=== PATIENT | female | born 1940 | race Caucasian/White ===

== ENCOUNTER 2019-08-20 11:49 | Emergency (ER) | payer MEDICARE, SELFPAY ==
--- NOTE | ~2019-08-20 | XR_ITS ---
EXAMINATION: XR foot LT min 3V DATE: 08/20/2019 12:34 INDICATION: Left foot pain. TECHNIQUE: 4 views of left foot were obtained. COMPARISON: None. FINDINGS: There is mild valgus. No fracture. There is mild osteoarthritis of first metatarsophalangea l joint and some of the interphalangeal joints. There are enthesophytes at the posterior and plantar aspects of calcaneal tuberosity. IMPRESSION: 1. Mild hallux valgus. 2. Mild polyarticular osteoarthritis. Reviewed, dictated and finalized at location A. ERVATION AGENT
[2019-08-20 11:58] VITALS: BP 165/56; PULSE 84; RESP 20; TEMP 36.7; O2SAT 100
--- NOTE | 2019-08-20 12:04 | ED.GENADULT ---
HPI - General Adult General Chief complaint: Abdominal Pain Stated complaint: foot and stomach pain Time Seen by Provider: 08/20/19 12:05 Source: patient and RN notes reviewed Mode of arrival: ambulatory Limitations: no limitations History of Present Illness HPI narrative: 79 [facility] complaints of lower pelvic pressure and urinary frequency, upper epigastric discomfort described as acid reflux and left foot pain. Patient states that her left foot dorsal aspect has been painful for the past 2-3 weeks denies any injury, no swelling or discoloration noted with strong pedal and posterior tibial pulses. Patient states that when she first gets out of bed and puts weight on foot it is painful and decreases as she is up on her foot, has taken some Tylenol for her discomfort. She states lower medial abdomen discomfort, urinary frequency, and urinary odor for the past few days with history of UTI's. rates her discomfort as 5/10. Patient also states upper epigastric discomfort for past month with increase in belching, denies any nausea or vomiting, had normal BM today has been taking Tums for this complaint. MD complaint: left foot pain, lower pelvic pressure, urgency, frequency, acid reflex Onset (ago): week(s) (3 left foot,4 weeks of upper epigastric discomfort and belching, 2-3 days of urinary symptoms) Location: abdomen (epigastric) and lower extremity (left foot) Radiation: non-radiation Severity: moderate Severity scale (1-10): 5 Quality: aching Pain Consistency: intermittent Relieving factors: medication Exacerbating factors: movement Associated symptoms: denies other symptoms Treatments prior to arrival: other (Tylenol and TUMS) Related Data Home Medications Medication Instructions Recorded Confirmed amlodipine 10 mg PO DAILY 07/12/19 08/20/19 aspirin 81 mg PO DAILY 07/12/19 08/20/19 atorvastatin 40 mg PO DAILY 07/12/19 08/20/19 clopidogrel [Plavix] 75 mg PO DAILY 07/12/19 08/20/19 hydrochlorothiazide 25 mg PO DAILY 07/12/19 08/20/19 latanoprost 1 drp OPHTHALMIC (EYE) DAILY 07/12/19 08/20/19 levothyroxine 50 mcg PO DAILY 07/12/19 08/20/19 metformin 850 mg PO BID 07/12/19 08/20/19 omega [id number] oil [Fish Oil] 1 cap PO DAILY 07/12/19 08/20/19 Allergies Allergy/AdvReac Type Severity Reaction Status Date / Time No Known Allergies Allergy Verified 08/20/19 12:11 Review of Systems Review of Systems: Narrative: CONSTITUTIONAL: Denies fever, chills, or sweats. EYES: Denies visual changes, redness, or discharge. ENT: Denies rhinorrhea, congestion, sore throat, or otalgia. CARDIOVASCULAR: Denies chest pain, palpitations, or edema. RESPIRATORY: Denies cough or dyspnea. GASTROINTESTINAL:reports abdominal pain lower medial region and medial upper, no nausea, vomiting, or diarrhea. GENITOURINARY: voices dysuria or hematuria, reports urinary frequency and urgency SKIN: Denies rash or itching. MUSCULOSKELETAL: Denies back pain,positive for dorsal left foot pain with weight bearing,. NEUROLOGIC: Denies headache, numbness, or weakness. PSYCHIATRIC: Denies anxiety or depression. All systems reviewed & are unremarkable except as noted in HPI and below PMFSH Past Medical History Medical History (Updated 08/24/19 @ 08:32 by Bere Montgomery NP) Cataract Diabetes Hypercholesteremia Hypertension Hypothyroidism Postmenopausal Surgical History Surgical History (Updated 08/24/19 @ 08:29 by Bere Montgomery NP) H/O carotid endarterectomy History of appendectomy Tympanic tube insertion Social History Social History (Updated 08/20/19 @ 12:41 by Bere Montgomery NP) Smoking status: Never smoker Living arrangements: alone Occupation/Education: retired Gender identity (if verbalized by the patient): Female Comments At time of signature, agree with nursing past medical, social history. There is no relevant family history pertinent to the presenting complaint Exam Narrative:
== END 2019-08-20 12:55 | disposition home or self-care (01) ==
PROVIDERS: Emergency Provider Registered Nurse; PCP Internal Medicine Infectious Disease
DX: N39.0 Urinary tract infection, site not specified (principal); K21.9 Gastro-esophageal reflux disease without esophagitis; M79.672 Pain in left foot; H26.9 Unspecified cataract; E11.9 Type 2 diabetes mellitus without complications; E78.00 Pure hypercholesterolemia, unspecified; I10 Essential (primary) hypertension; E03.9 Hypothyroidism, unspecified
CPT/HCPCS: 73630; 81003; 87077; 87086; 87088; 87186; 99213; G0463

== ENCOUNTER 2020-02-28 17:55 | Emergency (ER) | payer MEDICARE, SELFPAY ==
[2020-02-28 18:08] VITALS: BP 198/68; PULSE 70; RESP 18; TEMP 36.6; O2SAT 100
--- NOTE | 2020-02-28 18:45 | ED.GENADULT ---
HPI - General Adult General Chief complaint: Unspecified Stated complaint: blood up Time Seen by Provider: 02/28/20 18:45 Source: patient and RN notes reviewed Mode of arrival: ambulatory Limitations: no limitations History of Present Illness HPI narrative: 79-year-old female presents with complaints of elevated blood pressure since adjustment of medications 2 days ago. Shelly says her PMD office took her off her water pill and adjusted her Quinapril. Denies fatigue, numbness or tingling in the extremities, dizziness, headache, blurred vision, or other vision disturbance. Symptoms has increased over the last 24 hours with increase blood pressure readings. Denies URI symptoms. Denies dysuria or hematuria. Elevated blood glucose readings today. Denies polyuria, polydipsia, nocturia, recent weight loss, rapid heart beat, dizziness, lightheadedness, and alter mental status. Denies fever or chills. Denies nausea, vomiting, and abdominal pain. Denies chest pain or shortness of breath. The patient reports she have not been diagnosed with COVID-19. The patient reports she is not waiting for the results of a COVID-19 lab test. The patient reports she do not have fever, chills, weakness, or fatigue. The patient reports she do not have a new or worsening cough or shortness of breath. The patient reports she do not have any rhinorrhea, congestion, sore throat, loss of taste, or diarrhea. Tolerating po intake well. Denies recent traveling. Denies concerns for COVID-19 or exposures been home with limited outdoor exposure except for essential household needs and return home. At this time, patient is not suspected of having COVID-19. Some parts of this dictation were generated by voice recognition software and may contain typographical and/or grammatical inaccuracies. Related Data Home Medications Medication Instructions Recorded Confirmed amlodipine 5 mg PO DAILY 07/12/19 02/28/20 atorvastatin 40 mg PO DAILY 07/12/19 02/28/20 clopidogrel [Plavix] 75 mg PO DAILY 07/12/19 02/28/20 latanoprost 1 drp OPHTHALMIC (EYE) DAILY 07/12/19 02/28/20 levothyroxine 50 mcg PO DAILY 07/12/19 02/28/20 metformin 850 mg PO BID 07/12/19 02/28/20 meclizine 25 mg PO TID PRN 02/28/20 02/28/20 omeprazole 20 mg PO DAILY 02/28/20 02/28/20 quinapril 40 mg PO DAILY 02/28/20 02/28/20 vitamin E 100 unit PO DAILY 02/28/20 02/28/20 Allergies Allergy/AdvReac Type Severity Reaction Status Date / Time Unable to Assess Allergy Verified 02/28/20 18:35 Review of Systems Review of Systems: Narrative: CONSTITUTIONAL: Denies fever, chills, sweats. EYES: Denies visual changes, redness, discharge. ENT: Denies rhinorrhea, congestion, sore throat, otalgia. CARDIOVASCULAR: Denies chest pain, palpitations, edema. Complains of elevated blood pressure and glucose readings. RESPIRATORY: Denies dyspnea, wheezing, cough. GASTROINTESTINAL: Denies abdominal pain, nausea, vomiting, diarrhea. GENITOURINARY: Denies dysuria, hematuria, abnormal discharge. SKIN: Denies rash or itching. MUSCULOSKELETAL: Denies acute back pain, joint pain, or myalgia. NEUROLOGIC: Denies numbness or focal weakness. PSYCHIATRIC: Denies anxiety or depression. All other systems reviewed are negative, except as documented in HPI and below. [facility] Past Medical History Medical History Cataract Diabetes Hypercholesteremia Hypertension Hypothyroidism Postmenopausal Surgical History Surgical History H/O carotid endarterectomy History of appendectomy Tympanic tube insertion Family History Family History (Updated 03/02/20 @ 16:59 by BONG Mckeon) Father Family history of hypertension Social History Social History (Updated 03/02/20 @ 17:00 by BONG Mckeon) Smoking status: Never smoker Tobacco type: cigarettes Substance use: never Occupation/Educatio
[2020-02-28 19:02] VITALS: BP 178/70
== END 2020-02-28 19:17 | disposition home or self-care (01) ==
PROVIDERS: Emergency Provider Nurse Practitioner Family
DX: I10 Essential (primary) hypertension (principal); E11.9 Type 2 diabetes mellitus without complications; E78.00 Pure hypercholesterolemia, unspecified; E03.9 Hypothyroidism, unspecified; H26.9 Unspecified cataract
CPT/HCPCS: 99211; G0463

== ENCOUNTER 2020-07-22 12:43 | Emergency (ER) | payer MEDICARE, SELFPAY ==
[2020-07-22 12:43] VITALS: BP 218/85; PULSE 88; RESP 18; TEMP 37.1; O2SAT 98
[2020-07-22 12:45] VITALS: PULSE 84
[2020-07-22 12:49] VITALS: BP 205/76; PULSE 86
--- NOTE | 2020-07-22 12:49 | ED.GENADULT ---
HPI - General Adult General Chief complaint: Neuro Symptoms/Deficit Stated complaint: chest pain Time Seen by Provider: 07/22/20 12:50 Source: patient, family and RN notes reviewed Mode of arrival: ambulatory Limitations: no limitations History of Present Illness HPI narrative: 80 year old female who presents to [facility] care accompanied by son with complaints of feeling dizzy this morning and when she coughed she had a pain in the left side of her chest. Patient states that she recently saw her PCP and was diagnosed with a urinary tract infection and she has taken 2 doses of Macrobid. Patient has history of hypertension and takes medications daily but blood pressure noted to be 205/76 the lowest reading while here. Finger stick blood sugar 132 in clinic, stated sugar was 173 this morning when she checked blood sugar. Patient able to move all extremities on own power, no drift noted, face is symmetrical, states dizziness not increased when standing. Patient denies any headache, visual changes, or shortness of breath. lungs clear to auscultation, no tachypnea or accessory muscle use. MD complaint: dizziness Onset (ago): hour(s) (1) Location: head Radiation: non-radiation Relieving factors: none Exacerbating factors: none Associated symptoms: chest pain (one episode with cough this morning was sharp now gone.) Treatments prior to arrival: none Related Data Home Medications Medication Instructions Recorded Confirmed amlodipine 5 mg PO DAILY 07/12/19 02/28/20 atorvastatin 40 mg PO DAILY 07/12/19 02/28/20 clopidogrel [Plavix] 75 mg PO DAILY 07/12/19 02/28/20 latanoprost 1 drp OPHTHALMIC (EYE) DAILY 07/12/19 02/28/20 levothyroxine 50 mcg PO DAILY 07/12/19 02/28/20 metformin 850 mg PO BID 07/12/19 02/28/20 meclizine 25 mg PO TID PRN 02/28/20 02/28/20 quinapril 40 mg PO DAILY 02/28/20 02/28/20 vitamin E 100 unit PO DAILY 02/28/20 02/28/20 nitrofurantoin 100 mg PO Q12H 07/22/20 07/22/20 Allergies Allergy/AdvReac Type Severity Reaction Status Date / Time No Known Allergies Allergy Verified 07/22/20 13:11 Review of Systems Review of Systems: Narrative: CONSTITUTIONAL: Denies fever, chills, or sweats. EYES: Denies visual changes, redness, or discharge. ENT: Denies rhinorrhea, congestion, sore throat, or otalgia. CARDIOVASCULAR: reports that she had left sided chest pain when she coughed today,no palpitations, or edema noted and this scared her this morning, no pain at present RESPIRATORY: Denies acute cough or feelings of dyspnea. GASTROINTESTINAL: Denies abdominal pain, nausea, vomiting, or diarrhea. GENITOURINARY: Positive dysuria or hematuria. SKIN: Denies rash or itching. MUSCULOSKELETAL: Denies back pain, joint pain, or myalgia. NEUROLOGIC: Denies headache, numbness, or weakness. PSYCHIATRIC: Denies anxiety or depression. All systems reviewed & are unremarkable except as noted in HPI and below PMFSH Past Medical History Medical History (Updated 07/22/20 @ 13:26 by Bere Montgomery NP) Cataract Diabetes Hypercholesteremia Hypertension Hypothyroidism Postmenopausal Surgical History Surgical History H/O carotid endarterectomy History of appendectomy Tympanic tube insertion Family History Family History (Updated 03/02/20 @ 16:59 by BONG Mckeon) Father Family history of hypertension Social History Social History (Updated 03/02/20 @ 17:00 by BONG Mckeon) Smoking status: Never smoker Tobacco type: cigarettes Substance use: never Gender identity (if verbalized by the patient): Female Comments At time of signature, agree with nursing past medical, surgical, social and family history. There is no relevant family history pertinent to the presenting complaint Exam Narrative: Exam Narrative: GENERAL: Well-appearing, well-nourished, and in no acute distress. HEAD: Normocephalic, atraumatic. EYES: PERRLA and EOMI.no nystagmus E
[2020-07-22 12:51] VITALS: BP 213/61; PULSE 83
[2020-07-22 12:54] VITALS: BP 210/73; PULSE 97
[2020-07-22 12:55] LABS: Glucose Point of Care 132 (65-105)
--- NOTE | 2020-07-22 13:06 | ECG_ITS ---
Measurements Intervals [place] Rate: 78 P: 51 NM: 162 QRS: -14 QRSD: 82 T: 68 QT: 363 QTc: 413 Interpretive Statements SINUS RHYTHM BASELINE ARTIFACT- I, II, AVR, AVL, AVF, V1-V6 BORDERLINE ECG Electronically Signed On 07-22-2020 15:35:14 CONSTRUCTION SUPERVISOR by Keshawn Morse D.O.
== END 2020-07-22 13:15 | disposition short-term general hospital (02) ==
PROVIDERS: Emergency Provider Registered Nurse; PCP Internal Medicine Infectious Disease
DX: I10 Essential (primary) hypertension (principal); R42 Dizziness and giddiness; E11.9 Type 2 diabetes mellitus without complications; E78.00 Pure hypercholesterolemia, unspecified; E03.9 Hypothyroidism, unspecified; Z79.01 Long term (current) use of anticoagulants
CPT/HCPCS: 82948; 93005; 99213; G0463

== ENCOUNTER 2020-12-13 09:34 | Emergency (ER) | payer MEDICARE, SELFPAY ==
--- NOTE | 2020-12-13 09:40 | ED.UPPEXIN ---
HPI - Extremity Injury (Upper) General Chief Complaint: Skin/Abscess/Foreign Body Stated Complaint: Insect (Bee) Bite on right Hand Time Seen by Provider: 12/13/20 09:45 Source: patient and RN notes reviewed Mode of arrival: ambulatory Limitations: no limitations History of Present Illness HPI narrative: 80 yo female presents to the [facility] with C/O being stung by a bee yesterday. Sting at the base of 3rd finger right hand. Warmth, redness and swelling noted to the dorsal aspect for hand, not circumferential Denies SOB, tongue or lip swelling. Sensation intact all 5 fingers. Strong skating rink ice maker noted. Positive radial pulse. States that she took metform this am and ate [id number] today. Related Data Home Medications Medication Instructions Recorded Confirmed amlodipine 5 mg PO DAILY 07/12/19 12/13/20 atorvastatin 40 mg PO DAILY 07/12/19 12/13/20 clopidogrel [Plavix] 75 mg PO DAILY 07/12/19 12/13/20 latanoprost 1 drp OPHTHALMIC (EYE) DAILY 07/12/19 12/13/20 levothyroxine 50 mcg PO DAILY 07/12/19 12/13/20 metformin 850 mg PO BID 07/12/19 12/13/20 meclizine 25 mg PO TID PRN 02/28/20 12/13/20 quinapril 40 mg PO DAILY 02/28/20 12/13/20 vitamin E 100 unit PO DAILY 02/28/20 12/13/20 metoprolol succinate 100 mg PO DAILY 12/13/20 12/13/20 Allergies Allergy/AdvReac Type Severity Reaction Status Date / Time No Known Allergies Allergy Verified 12/13/20 09:57 Review of Systems Review of Systems: All systems reviewed & are unremarkable except as noted in HPI and below Constitutional: Constitutional: Reports no additional constitutional complaints, Denies chills, Denies fever(s) and Denies weakness Eyes: Eyes: Reports no additional eye complaints ENT: Reports system reviewed and no additional complaints, except as documented, Denies dizziness and Denies sore throat Cardiovascular: Cardiovascular: Reports no additional cardiovascular complaints, Denies chest pain and Denies radiating jaw, neck or arm pain Respiratory: Respiratory: Reports no additional respiratory complaints, Denies cough, Denies dyspnea and Denies wheezing Gastrointestinal: Gastrointestinal: Reports no additional gastrointestinal complaints, Denies abdominal pain, Denies nausea and Denies vomiting Integumentary/Breasts: Skin/Breast: Reports as per HPI Neurologic: Reports system reviewed and no additional complaints, except as documented, Denies confusion, Denies focal weakness, Denies numbness and Denies weakness Psychiatric: Psychiatric: Reports no additional psychiatric complaints [facility] Past Medical History Medical History (Updated 12/13/20 @ 09:56 by Olivia Givens) Cataract Diabetes Hypercholesteremia Hypertension Hypothyroidism Postmenopausal Surgical History Surgical History H/O carotid endarterectomy History of appendectomy Tympanic tube insertion Family History Family History Father Family history of hypertension Social History Social History Smoking status: Never smoker Tobacco type: cigarettes Substance use: never Gender identity (if verbalized by the patient): Female Comments At the time of my signature, I reviewed and agree with the nursing past medical, surgical, social, and family history. There is no relevant family history pertinent to the patient complaint. Exam Const: General: healthy appearing, no acute distress and alert Nutritional Appearance: well nourished Orientation/consciousness: patient oriented x3 Limitations: no limitations HENMT: Head: normal to inspection Eyes: Conjunctivae: conjunctivae normal Pupils: Equal, round and reactive pupils present Neck: Neck: normal visual inspection, no lymphadenopathy and no meningeal signs Chest: Chest palpation & inspection: normal inspection of the chest Resp: Effort & Inspection: normal respiratory effort and no u
[2020-12-13 09:42] VITALS: BP 171/61; PULSE 68; RESP 20; TEMP 36.6; O2SAT 100
[2020-12-13 09:58] LABS: Glucose Point of Care 313 mg/dl (65-105)
[2020-12-13 10:05] VITALS: BP 170/58
== END 2020-12-13 10:05 | disposition home or self-care (01) ==
PROVIDERS: Emergency Provider Nurse Practitioner; PCP Internal Medicine Infectious Disease
DX: T63.441A Toxic effect of venom of bees, accidental (unintentional), initial encounter (principal); E11.9 Type 2 diabetes mellitus without complications; E78.00 Pure hypercholesterolemia, unspecified; I10 Essential (primary) hypertension; E03.9 Hypothyroidism, unspecified; H26.9 Unspecified cataract
CPT/HCPCS: 82948; 99213; G0463

== ENCOUNTER 2021-01-26 11:54 | Emergency (ER) | payer MEDICARE, SELFPAY ==
--- NOTE | 2021-01-26 11:57 | ED.FEMALEGU ---
HPI - Female Genitourinary General Chief complaint: Urogenital-Female Stated complaint: poss uti Time Seen by Provider: 01/26/21 11:57 Source: patient and RN notes reviewed History of Present Illness HPI Narrative: Patient is an 80-year-old female who presents the urgent care with complaints of 1 month history of on and off abdominal pains, possible UTI due to chills and sweats at night for the last 3 to 4 days, and a rash that comes and goes to the bilateral lower legs . Patient states that the rash goes away sometimes after elevating her legs. Patient has not spoke to her PCP regarding the rash. States that she saw her primary care doctor, and obtain lab work, around 05 January and did not mention to them her abdominal pain that comes and goes. Patient currently denies of abdominal pain, nausea, vomiting, low back pain. Denies of any urinary symptoms such as dysuria, frequency or urgency. Patient has not taken anything for her symptoms. Denies of any fevers. No other acute complaints. No acute distress noted. Patient aware of the plan of care. Some parts of this dictation were generated by voice recognition software and may contain typographical and/or grammatical inaccuracies. Related Data Home Medications Medication Instructions Recorded Confirmed amlodipine 5 mg PO DAILY 07/12/19 12/13/20 atorvastatin 40 mg PO DAILY 07/12/19 12/13/20 clopidogrel [Plavix] 75 mg PO DAILY 07/12/19 12/13/20 latanoprost 1 drp OPHTHALMIC (EYE) DAILY 07/12/19 12/13/20 levothyroxine 50 mcg PO DAILY 07/12/19 12/13/20 metformin 850 mg PO BID 07/12/19 12/13/20 meclizine 25 mg PO TID PRN 02/28/20 12/13/20 quinapril 40 mg PO DAILY 02/28/20 12/13/20 vitamin E 100 unit PO DAILY 02/28/20 12/13/20 metoprolol succinate 100 mg PO DAILY 12/13/20 12/13/20 Allergies Allergy/AdvReac Type Severity Reaction Status Date / Time No Known Allergies Allergy Verified 01/26/21 11:56 Review of Systems Review of Systems: Narrative: CONSTITUTIONAL: Reports of chills and sweats at night EYES: Denies visual changes, redness, or discharge. ENT: Denies rhinorrhea, congestion, sore throat, or otalgia. CARDIOVASCULAR: Denies chest pain, palpitations, or edema. RESPIRATORY: Denies cough or dyspnea. GASTROINTESTINAL: Reports of intermittent lower abdominal pains without nausea, vomiting or diarrhea GENITOURINARY: Denies dysuria or hematuria. SKIN: Reports of a rash to the lower extremities that comes and goes MUSCULOSKELETAL: Denies back pain, joint pain, or myalgia. NEUROLOGIC: Denies headache, numbness, or weakness. All other systems reviewed are negative, except as documented in HPI. [facility] Past Medical History Medical History (Updated 01/26/21 @ 12:34 by BONG Fountain) Cataract Diabetes Hypercholesteremia Hypertension Hypothyroidism Postmenopausal Surgical History Surgical History H/O carotid endarterectomy History of appendectomy Tympanic tube insertion Family History Family History Father Family history of hypertension Social History Social History Smoking status: Never smoker Tobacco type: cigarettes Substance use: never Gender identity (if verbalized by the patient): Female Comments At the time of my signature, I reviewed and agree with the nursing past medical, surgical, social, and family history. There is no relevant family history pertinent to the patient complaint. Exam Narrative: Exam Narrative: GENERAL: This is a well-nourished, well-developed patient, in no apparent distress. HEAD: normocephalic, atraumatic. EYES: PERRL. Sclera clear/white. Vision is grossly intact. EARS: External ears normal NOSE: External nose normal with no obvious nasal discharge, nares without redness, no rhinorrhea. THROAT: Mucous membranes moist NECK: Neck supple CARDIOVASCULAR: Regular rate and rh
[2021-01-26 12:00] VITALS: BP 191/60; PULSE 66; RESP 20; TEMP 36.7; O2SAT 99
== END 2021-01-26 12:37 | disposition home or self-care (01) ==
PROVIDERS: Emergency Provider Nurse Practitioner Family; PCP Internal Medicine Infectious Disease
DX: R68.83 Chills (without fever) (principal); H26.9 Unspecified cataract; E11.9 Type 2 diabetes mellitus without complications; E78.00 Pure hypercholesterolemia, unspecified; I10 Essential (primary) hypertension; E03.9 Hypothyroidism, unspecified
CPT/HCPCS: 81003; 87077; 87086; 87186; 99213; G0463

== ENCOUNTER 2021-09-19 11:40 | Emergency (ER) | payer MEDICARE, SELFPAY ==
--- NOTE | ~2021-09-19 | XR_ITS ---
EXAMINATION: XR hip RT min 2V DATE: 09/19/2021 12:37 INDICATION: Right hip pain. TECHNIQUE: 2 views of right hip were obtained. COMPARISON: None. FINDINGS: Bone alignment is normal. No fracture. There is sclerosis in femoral head, consistent with osteonecrosis. Right hip joint space is normal. IMPRESSION: 1. Sclerosis in right femoral head, consistent with osteonecrosis. Reviewed, dictated and finalized at location A.
[2021-09-19 11:59] VITALS: BP 220/78; PULSE 69; RESP 16; TEMP 36.4; O2SAT 98
--- NOTE | 2021-09-19 12:08 | ED.LOWEXIN ---
HPI - Extremity Injury (Lower) General Chief Complaint: Extremity Injury, Lower Stated Complaint: right leg pain Time Seen by Provider: 09/19/21 12:08 Source: patient and RN notes reviewed History of Present Illness HPI Narrative: Patient is an 81-year-old female who presents the urgent care with complaints of right leg and right hip pain. Patient states she woke up with the pain today which seems to be mildly getting better. Patient states she also has some numbness and tingling down the right leg however that might be a little normal for her due to her history of neuropathy . Patient denies of any recent fall or injury. Patient has not taken anything [id number] for her pain. No other acute complaints. No acute distress noted. Patient read the plan of care. Some parts of this dictation were generated by voice recognition software and may contain typographical and/or grammatical inaccuracies. Related Data Home Medications Medication Instructions Recorded Confirmed atorvastatin 40 mg PO DAILY 07/12/19 09/19/21 clopidogrel [Plavix] 75 mg PO DAILY 07/12/19 09/19/21 latanoprost 1 drp OPHTHALMIC (EYE) DAILY 07/12/19 09/19/21 levothyroxine 50 mcg PO DAILY 07/12/19 09/19/21 metformin 850 mg PO BID 07/12/19 09/19/21 meclizine 25 mg PO TID PRN 02/28/20 09/19/21 quinapril 40 mg PO DAILY 02/28/20 09/19/21 vitamin E 100 unit PO DAILY 02/28/20 09/19/21 metoprolol succinate 100 mg PO DAILY 12/13/20 09/19/21 hydralazine 25 mg PO TID 09/19/21 09/19/21 Allergies Allergy/AdvReac Type Severity Reaction Status Date / Time Penicillins Allergy Cramping Verified 09/19/21 12:20 of the Muscles Review of Systems Review of Systems: CONSTITUTIONAL: Denies fever, chills, or sweats. EYES: Denies visual changes, redness, or discharge. ENT: Denies rhinorrhea, congestion, sore throat, or otalgia. CARDIOVASCULAR: Denies chest pain, palpitations, or edema. RESPIRATORY: Denies cough or dyspnea. GASTROINTESTINAL: Denies abdominal pain, nausea, vomiting, or diarrhea. GENITOURINARY: Denies dysuria or hematuria. SKIN: Denies rash or itching. MUSCULOSKELETAL: Reports of right posterior hip pain rating down the right leg NEUROLOGIC: Denies headache, numbness, or weakness. All other systems reviewed are negative, except as documented in HPI. [facility] Past Medical History Medical History (Updated 09/19/21 @ 13:02 by BONG Fountain) Cataract Diabetes Hypercholesteremia Hypertension Hypothyroidism Postmenopausal Surgical History Surgical History H/O carotid endarterectomy History of appendectomy Tympanic tube insertion Family History Family History Father Family history of hypertension Social History Social History Smoking status: Never smoker Tobacco type: cigarettes Substance use: never Gender identity (if verbalized by the patient): Female Comments At the time of my signature, I reviewed and agree with the nursing past medical, surgical, social, and family history. There is no relevant family history pertinent to the patient complaint. Exam Narrative: GENERAL: This is a well-nourished, well-developed patient, in no apparent distress. HEAD: normocephalic, atraumatic. EYES: PERRL. Sclera clear/white. Vision is grossly intact. EARS: External ears normal NOSE: External nose normal with no obvious nasal discharge, nares without redness, no rhinorrhea. THROAT: Mucous membranes moist NECK: Neck supple RESPIRATORY: Clear to auscultation. Breath sounds equal bilaterally. No wheezes, rales, or rhonchi. SKIN: warm, intact with no suspicious lesions or rash, good texture and turgor. NEURO: awake, alert, and oriented to person, place and time. There were no obvious focal neurologic abnormalities. 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 EXTREMITIES: Mild
[2021-09-19 12:56] VITALS: BP 219/79
== END 2021-09-19 13:04 | disposition left against medical advice (07) ==
PROVIDERS: Emergency Provider Nurse Practitioner Family; PCP Internal Medicine Infectious Disease
DX: M87.9 Osteonecrosis, unspecified (principal); M16.11 Unilateral primary osteoarthritis, right hip; I10 Essential (primary) hypertension; E11.9 Type 2 diabetes mellitus without complications; E78.00 Pure hypercholesterolemia, unspecified; E03.9 Hypothyroidism, unspecified; H26.9 Unspecified cataract; G62.9 Polyneuropathy, unspecified
CPT/HCPCS: 73502; 99213; G0463

== ENCOUNTER 2022-01-23 15:43 | Emergency (ER) | payer MEDICARE, SELFPAY ==
[2022-01-23 16:09] VITALS: PULSE 77; RESP 16; TEMP 36.6; O2SAT 98
--- NOTE | 2022-01-23 17:21 | ED.GENADULT ---
HPI - General Adult General Chief complaint: Urogenital-Female Stated complaint: Chills, dizzy Source: patient Mode of arrival: ambulatory Limitations: no limitations History of Present Illness HPI narrative: Patient presents for evaluation of a suspected bladder infection. She indicates that she was experiencing some suprapubic discomfort so she called her primary care provider. He advised that she have a urine specimen performed. It is unclear whether she did have this performed. She states she has had some chills and a headache. She recently had tympanostomy tubes placed as her ears were not draining properly . She has some mild dysuria but reports urinary frequency. She denies any flank pain, vomiting or fever. She has some GI discomfort following a cholecystectomy. She has no other concerns. Related Data Home Medications Medication Instructions Recorded Confirmed atorvastatin 40 mg tablet 40 mg PO DAILY 07/12/19 01/23/22 clopidogrel 75 mg tablet (Plavix) 75 mg PO DAILY 07/12/19 01/23/22 latanoprost 0.005 % eye drops 1 drp ophthalmic (eye) DAILY 07/12/19 01/23/22 levothyroxine 50 mcg tablet 50 mcg PO DAILY 07/12/19 01/23/22 metformin 850 mg tablet 850 mg PO BID 07/12/19 01/23/22 meclizine 25 mg tablet 25 mg PO TID PRN Dizziness 02/28/20 01/23/22 quinapril 40 mg tablet 40 mg PO DAILY 02/28/20 01/23/22 vitamin E 100 unit capsule 100 unit PO DAILY 02/28/20 01/23/22 metoprolol succinate 100 mg 100 mg PO DAILY 12/13/20 01/23/22 tablet,extended release 24 hr hydralazine 25 mg tablet 25 mg PO TID 09/19/21 01/23/22 Allergies Allergy/AdvReac Type Severity Reaction Status Date / Time Penicillins Allergy Cramping Verified 09/19/21 12:20 of the [facility] Review of Systems Review of Systems: CONSTITUTIONAL: Denies fever, chills, or sweats. EYES: Denies visual changes, redness, or discharge. ENT: Denies rhinorrhea, congestion, sore throat, or otalgia. CARDIOVASCULAR: Denies chest pain, palpitations, or edema. RESPIRATORY: Denies cough or dyspnea. GASTROINTESTINAL: Reports some suprapubic discomfort and some GI discomfort following cholecystectomy GENITOURINARY: Reports urinary frequency and mild dysuria SKIN: Denies rash or itching. MUSCULOSKELETAL: Denies back pain, joint pain, or myalgia. NEUROLOGIC: Denies headache, numbness, dizziness, or weakness. PSYCHIATRIC: Denies anxiety or depression. [facility] Past Medical History Medical History (Updated 01/23/22 @ 17:25 by Moises Bales, [employer], ) Cataract Diabetes Hypercholesteremia Hypertension Hypothyroidism Postmenopausal Surgical History Surgical History H/O carotid endarterectomy History of appendectomy History of cholecystectomy Tympanic tube insertion Family History Family History Father Family history of hypertension Social History Social History Smoking status: Never smoker Tobacco type: cigarettes Substance use: never Living arrangements: alone Gender identity (if verbalized by the patient): Female Exam Narrative: GENERAL: Well-appearing, well-nourished, and in no acute distress. HEAD: Normocephalic, atraumatic. EYES: PERRLA and EOMI. ENT: Nares clear, no rhinorrhea or epistaxis. Mucous membranes moist. Oropharynx without tonsillar hypertrophy exudate or other lesions. Bilateral TMs pearly lucas nonbulging NECK: Supple. No adenopathy or masses. No carotid bruits or JVD CHEST: Clear to auscultation. No respiratory distress. No wheezes rales or rhonchi HEART: Regular rate and rhythm. No murmur heard. Normal peripheral pulses. ABDOMEN: Soft, suprapubic tenderness without rebound or guarding. Nondistended, normal active bowel sounds. EXTREMITIES: Normal range of motion. No edema. SKIN: Warm, dry, no rash. NEURO: No focal deficits. Alert and o
== END 2022-01-23 17:27 | disposition home or self-care (01) ==
PROVIDERS: Emergency Provider Nurse Practitioner; PCP Internal Medicine Infectious Disease
DX: N39.0 Urinary tract infection, site not specified (principal); E11.9 Type 2 diabetes mellitus without complications; E78.00 Pure hypercholesterolemia, unspecified; I10 Essential (primary) hypertension; E03.9 Hypothyroidism, unspecified; H26.9 Unspecified cataract; Z79.84 Long term (current) use of oral hypoglycemic drugs
CPT/HCPCS: 81003; 87077; 87086; 87186; 99213; G0463

== ENCOUNTER 2022-01-25 14:57 | Emergency (ER) | payer MEDICARE, SELFPAY ==
[2022-01-25 15:10] VITALS: BP 179/52; PULSE 68; RESP 20; TEMP 37.2; O2SAT 100
--- NOTE | 2022-01-25 15:24 | ED.URI ---
HPI - URI/Sore Throat General Chief Complaint: Upper Respiratory Infection Stated Complaint: covid test/pre dr office Time Seen by Provider: 01/25/22 15:24 Source: patient and RN notes reviewed Mode of arrival: ambulatory Limitations: no limitations History of Present Illness HPI Narrative: 81-year-old female presented for complaint of sore throat, cough and postnasal drainage, onset today. She endorses COVID contact about 5 days ago. She contacted her PCP who told her to have a COVID test. She denies chest pain, shortness of breath, nausea, vomiting, diarrhea, fevers or chills. She has not taken anything for her symptoms. MD elicited complaint: cough Related Data Home Medications Medication Instructions Recorded Confirmed atorvastatin 40 mg tablet 40 mg PO DAILY 07/12/19 01/25/22 clopidogrel 75 mg tablet (Plavix) 75 mg PO DAILY 07/12/19 01/25/22 latanoprost 0.005 % eye drops 1 drp ophthalmic (eye) DAILY 07/12/19 01/25/22 levothyroxine 50 mcg tablet 50 mcg PO DAILY 07/12/19 01/25/22 metformin 850 mg tablet 850 mg PO BID 07/12/19 01/25/22 quinapril 40 mg tablet 40 mg PO DAILY 02/28/20 01/25/22 metoprolol succinate 100 mg 100 mg PO DAILY 12/13/20 01/25/22 tablet,extended release 24 hr hydralazine 25 mg tablet 25 mg PO TID 09/19/21 01/25/22 Allergies Allergy/AdvReac Type Severity Reaction Status Date / Time Penicillins Allergy Cramping Verified 01/25/22 15:18 of the Muscles Review of Systems Review of Systems: CONSTITUTIONAL: Denies malaise, chills, sweats, fever EYES: Denies visual changes, redness, or discharge ENT: Denies congestion, sinus pain, otalgia CARDIOVASCULAR: Denies chest pain, palpitations, edema RESPIRATORY: Reports cough, post nasal drainage. Denies dyspnea GASTROINTESTINAL: Denies abdominal pain, nausea, vomiting, diarrhea SKIN: Denies rash or itching MUSCULOSKELETAL: Denies myalgia NEUROLOGIC: Denies headache PMFSH Past Medical History Medical History Cataract Diabetes Hypercholesteremia Hypertension Hypothyroidism Postmenopausal Surgical History Surgical History H/O carotid endarterectomy History of appendectomy History of cholecystectomy Tympanic tube insertion Family History Family History Father Family history of hypertension Social History Social History Smoking status: Never smoker Tobacco type: cigarettes Substance use: never Gender identity (if verbalized by the patient): Female Exam Narrative: GENERAL: Well-appearing EYES: conjunctivae clear ENT: Mucous membranes moist. TM pearly lucas with dull light reflex bilaterally; no tragal tenderness. Oropharynx erythematous without lesions or exudate, no drooling, no hoarseness, no trismus, uvula midline. CHEST: Clear to auscultation, breath sounds equal. No wheezing, rhonchi, rales, or stridor. HEART: Regular rate and rhythm. No murmur heard. SKIN: Warm, dry, no rash. NEURO: Alert and oriented x3. PSYCH: Normal mood and affect Course Course Emergency Course: Patient is aware of diagnosis, understands and agrees to treatment plan. Anticipatory guidance given. Patient agrees to follow-up as directed and is aware of reasons to seek care at the emergency department. Portions of this record may have been created with voice recognition software Level of Care: Express Care Visit Vital Signs Vital signs: Vital Signs Temperature 98.9 F 01/25/22 15:10 Pulse Rate 68 01/25/22 15:10 Respiratory Rate 01/25/22 15:10 Blood Pressure 179/52 H 01/25/22 15:10 Pulse Oximetry 100 01/25/22 15:10 Oxygen Delivery Room Air 01/25/22 15:10 Temperature 98.9 F 01/25/22 15:10 Pulse Rate 68 01/25/22 15:10 Respiratory Rate 01/25/22 15:10 Blood Pressure 1
== END 2022-01-25 15:39 | disposition home or self-care (01) ==
PROVIDERS: Emergency Provider Nurse Practitioner Family; PCP Internal Medicine Infectious Disease
DX: U07.1 COVID-19 (principal); E11.9 Type 2 diabetes mellitus without complications; E78.00 Pure hypercholesterolemia, unspecified; I10 Essential (primary) hypertension; E03.9 Hypothyroidism, unspecified; H26.9 Unspecified cataract; Z79.84 Long term (current) use of oral hypoglycemic drugs
CPT/HCPCS: 87426; 99213; C9803; G0463

== ENCOUNTER 2022-02-19 17:47 | Emergency (ER) | payer MEDICARE, SELFPAY ==
[2022-02-19 17:54] VITALS: BP 216/64; PULSE 72; RESP 18; TEMP 36.4; O2SAT 100
--- NOTE | 2022-02-19 18:17 | ED.EAR ---
HPI - Ear Problem General Chief complaint: Ear Stated complaint: Blood Pressure Problem Time Seen by Provider: 02/19/22 18:18 Source: patient and RN notes reviewed Mode of arrival: ambulatory Limitations: no limitations History of Present Illness HPI Narrative: 81-year-old female presents with concern for high blood pressure. She feels that her high blood pressure is related to a possible ear infection. Reports when she gets an infection her blood pressure goes up. She has had sinus congestion and pressure for approximately 3 weeks. She reports that she has been taking her blood pressure medication as usual. She denies headache, vision changes, dizziness, weakness. She denies chest pain or shortness of breath. Reports she has been using [id number] sinus sprays without relief. Reports she has tympanostomy tubes to her ears, she is not had any drainage from the ears. MD Complaint: ear pain Related Data Home Medications Medication Instructions Recorded Confirmed atorvastatin 40 mg tablet 40 mg PO DAILY 07/12/19 02/19/22 clopidogrel 75 mg tablet (Plavix) 75 mg PO DAILY 07/12/19 02/19/22 latanoprost 0.005 % eye drops 1 drp ophthalmic (eye) DAILY 07/12/19 02/19/22 levothyroxine 50 mcg tablet 50 mcg PO DAILY 07/12/19 02/19/22 metformin 850 mg tablet 850 mg PO BID 07/12/19 02/19/22 quinapril 40 mg tablet 40 mg PO DAILY 02/28/20 02/19/22 metoprolol succinate 100 mg 100 mg PO DAILY 12/13/20 02/19/22 tablet,extended release 24 hr hydralazine 25 mg tablet 25 mg PO TID 09/19/21 02/19/22 Allergies Allergy/AdvReac Type Severity Reaction Status Date / Time Penicillins Allergy Cramping Verified 02/19/22 18:08 of the [facility] Review of Systems Review of Systems: CONSTITUTIONAL: Denies malaise, chills, sweats, or fever. EYES: Denies visual changes, redness, or discharge. ENT: Reports rhinorrhea, congestion, sinus pain. Denies and sore throat. Reports bilateral ear pain CARDIOVASCULAR: Denies chest pain, palpitations, or edema. RESPIRATORY: Denies cough. Denies dyspnea. GASTROINTESTINAL: Denies abdominal pain, nausea, vomiting, diarrhea SKIN: Denies rash or itching. MUSCULOSKELETAL: Denies myalgia. NEUROLOGIC: Denies headache. All systems reviewed & are unremarkable except as noted in HPI and below PMFSH Past Medical History Medical History Cataract Diabetes Hypercholesteremia Hypertension Hypothyroidism Postmenopausal Surgical History Surgical History H/O carotid endarterectomy History of appendectomy History of cholecystectomy Tympanic tube insertion Family History Family History Father Family history of hypertension Social History Social History Smoking status: Never smoker Tobacco type: cigarettes Substance use: never Gender identity (if verbalized by the patient): Female Comments At time of signature, agree with nursing past medical, surgical, social and family history. There is no relevant family history pertinent to the presenting complaint Exam Narrative: GENERAL: Well-appearing, well-nourished, and in no acute distress. HEAD: Normocephalic EYES: PERRLA, conjunctivae clear ENT: Nares clear, turbinates edematous, sinus tenderness. Mucous membranes moist. TM pearly lucas with dull light reflex bilaterally, bilateral tympanostomy tubes intact; no tragal tenderness. Oropharynx not erythematous without lesions. Tonsils not enlarged and without exudate, no drooling, no hoarseness, no trismus, uvula midline. NECK: Supple. No lymphadenopathy CHEST: Clear to auscultation, breath sounds equal. No wheezing, rhonchi, rales, or stridor. No respiratory distress, speaks in full sentences. HEART: Regular rate and rhythm. No murmur heard. SKIN: Warm, dry, no rash. NEURO: A
== END 2022-02-19 18:32 | disposition home or self-care (01) ==
PROVIDERS: Emergency Provider Nurse Practitioner; PCP Internal Medicine Infectious Disease
DX: J01.90 Acute sinusitis, unspecified (principal); E11.9 Type 2 diabetes mellitus without complications; Z79.84 Long term (current) use of oral hypoglycemic drugs; E78.00 Pure hypercholesterolemia, unspecified; I10 Essential (primary) hypertension; E03.9 Hypothyroidism, unspecified; H26.9 Unspecified cataract
CPT/HCPCS: 99213; G0463

== ENCOUNTER 2022-04-29 11:38 | Emergency (ER) | payer MEDICARE, SELFPAY ==
[2022-04-29 11:46] VITALS: BP 201/66; PULSE 65; RESP 20; TEMP 36.5; O2SAT 100
[2022-04-29 11:58] VITALS: BP 140/80
--- NOTE | 2022-04-29 12:16 | ED.DIZZY ---
HPI - Dizziness General Chief Complaint: Dizziness Stated Complaint: diarrhea lightheaded Time Seen by Provider: 04/29/22 12:05 Source: patient Mode of arrival: ambulatory Limitations: no limitations History of Present Illness HPI Narrative: Ms. Salas is an 81-year-old female patient presenting to the clinic today with complaints of dizziness, blurry vision, lightheadedness, and left calf pain that has been intermittent x2 to 3 weeks. She reports that her PCP has put her on some new blood pressure medications. Her blood pressure was initially 201/66 in the clinic using an electric blood pressure cuff however, a manual blood pressure was taken it was 140/80. She denies any shortness of breath or chest pain. Related Data Home Medications Medication Instructions Recorded Confirmed atorvastatin 40 mg tablet 40 mg PO DAILY 07/12/19 02/19/22 clopidogrel 75 mg tablet (Plavix) 75 mg PO DAILY 07/12/19 02/19/22 latanoprost 0.005 % eye drops 1 drp ophthalmic (eye) DAILY 07/12/19 02/19/22 levothyroxine 50 mcg tablet 50 mcg PO DAILY 07/12/19 02/19/22 metformin 850 mg tablet 850 mg PO BID 07/12/19 02/19/22 quinapril 40 mg tablet 40 mg PO DAILY 02/28/20 02/19/22 metoprolol succinate 100 mg 100 mg PO DAILY 12/13/20 02/19/22 tablet,extended release 24 hr hydralazine 25 mg tablet 25 mg PO TID 09/19/21 02/19/22 Allergies Allergy/AdvReac Type Severity Reaction Status Date / Time Penicillins Allergy Cramping Verified 04/29/22 11:[address] [facility] [place] Review of Systems Review of Systems: Pertinent positives per HPI. Patient denies any fever, chills, rash, headache, cough, runny nose, sore throat, shortness of breath, chest pain, palpitations, nausea, vomiting, diarrhea, constipation, abdominal pain, or any urinary issues. [facility] Past Medical History Medical History Cataract Diabetes Hypercholesteremia Hypertension Hypothyroidism Postmenopausal Surgical History Surgical History H/O carotid endarterectomy History of appendectomy History of cholecystectomy Tympanic tube insertion Family History Family History Father Family history of hypertension Social History Social History Smoking status: Never smoker Tobacco type: cigarettes Substance use: never Gender identity (if verbalized by the patient): Female Comments At the time of my signature, I reviewed and agree with the nursing past medical, surgical, social, and family history. There is no relevant family history pertinent to the patient complaint. Exam Narrative: General: Well-developed, well nourished, in no apparent distress Head: Normocephalic, atraumatic Eyes: Pupils equally round and reactive to light bilaterally, EOM intact, sclera and conjunctive clear, no discharge, lids normal Ears: TMs intact and clear, left T-tube in tympanic membrane, ear canals clear, no drainage, grossly hearing normal. Nose: Nares patent, no discharge, no inflammation, no sinus tenderness. Mouth: Oropharynx without lesions or masses, good dentition, MMM. Tongue midline, even rise and fall of uvula Neck: Supple, trachea midline, no enlargement of anterior or posterior cervical nodes, no thyroid masses or goiter palpable. Cardio: Regular rate and rhythm, s1 and s2 normal, no murmur appreciated. Resp: Clear to auscultation bilaterally anteriorly and posteriorly, no rhonchi, rales, wheezing or rubs Musculoskeletal: No deformity, tender to palpation over the left calf, positive Homans' sign, trace of edema to bilateral lower extremities, grossly normal range of motion, muscle strength strong and equal, peripheral pulse strong, no cyanosis, normal gait and station Neuro: Alert and oriented x4 with normal speech, no focal defic
== END 2022-04-29 12:15 | disposition short-term general hospital (02) ==
PROVIDERS: Emergency Provider Nurse Practitioner Family; PCP Internal Medicine Infectious Disease
DX: M79.662 Pain in left lower leg (principal); R42 Dizziness and giddiness; H53.8 Other visual disturbances; E11.9 Type 2 diabetes mellitus without complications; Z79.84 Long term (current) use of oral hypoglycemic drugs; I10 Essential (primary) hypertension; E78.00 Pure hypercholesterolemia, unspecified; E03.9 Hypothyroidism, unspecified; H26.9 Unspecified cataract
CPT/HCPCS: 99213; G0463

== ENCOUNTER 2022-11-05 18:17 | Emergency (ER) | payer MEDICARE, SELFPAY ==
--- NOTE | 2022-11-05 18:20 | ED.EAR ---
HPI - Ear Problem General Chief complaint: Ear Stated complaint: Ear Pain Time Seen by Provider: 11/05/22 18:20 Source: patient and RN notes reviewed History of Present Illness HPI Narrative: Patient is an 82-year-old female who presents to urgent care with complaints of right ear pain that started today. Patient states that she has chronic issues with her ears in currently has bilateral tubes. Patient has not had any drainage from the ear. Denies any fever. States that she has had a dry mouth otherwise denies any other upper respiratory complaints. Patient has not taken anything [id number] for her pain or discomfort. No other acute complaints. No acute distress noted. Patient aware of the plan of care. Some parts of this dictation were generated by voice recognition software and may contain typographical and/or grammatical inaccuracies. Related Data Home Medications Medication Instructions Recorded Confirmed atorvastatin 40 mg tablet 40 mg PO DAILY 07/12/19 02/19/22 clopidogrel 75 mg tablet (Plavix) 75 mg PO DAILY 07/12/19 02/19/22 latanoprost 0.005 % eye drops 1 drp ophthalmic (eye) DAILY 07/12/19 02/19/22 levothyroxine 50 mcg tablet 50 mcg PO DAILY 07/12/19 02/19/22 metformin 850 mg tablet 850 mg PO BID 07/12/19 02/19/22 quinapril 40 mg tablet 40 mg PO DAILY 02/28/20 02/19/22 metoprolol succinate 100 mg 100 mg PO DAILY 12/13/20 02/19/22 tablet,extended release 24 hr hydralazine 25 mg tablet 25 mg PO TID 09/19/21 02/19/22 cephalexin 250 mg capsule mg 11/05/22 Allergies Allergy/AdvReac Type Severity Reaction Status Date / Time Penicillins Allergy Cramping Verified 04/29/22 11:59 of the Muscles Review of Systems Review of Systems: CONSTITUTIONAL: Denies fever, chills, or sweats. EYES: Denies visual changes, redness, or discharge. ENT: Denies rhinorrhea, congestion, sore throat. Reports right otalgia CARDIOVASCULAR: Denies chest pain, palpitations, or edema. RESPIRATORY: Denies cough or dyspnea. GASTROINTESTINAL: Denies abdominal pain, nausea, vomiting, or diarrhea. GENITOURINARY: Denies dysuria or hematuria. SKIN: Denies rash or itching. MUSCULOSKELETAL: Denies back pain, joint pain, or myalgia. NEUROLOGIC: Denies headache, numbness, or weakness. All other systems reviewed are negative, except as documented in HPI. [facility] Past Medical History Medical History Cataract Diabetes Hypercholesteremia Hypertension Hypothyroidism Postmenopausal Surgical History Surgical History H/O carotid endarterectomy History of appendectomy History of cholecystectomy Tympanic tube insertion Family History Family History Father Family history of hypertension Social History Social History Smoking status: Never smoker Tobacco type: cigarettes Substance use: never Living arrangements: alone Occupation/Education: retired Gender identity (if verbalized by the patient): Female Comments At the time of my signature, I reviewed and agree with the nursing past medical, surgical, social, and family history. There is no relevant family history pertinent to the patient complaint. Exam Narrative: GENERAL: This is a well-nourished, well-developed patient, in no apparent distress. HEAD: normocephalic, atraumatic. EYES: PERRL. Sclera clear/white. Vision is grossly intact. EARS: External ears normal, auditory canals clear and without drainage, slightly dislodged blue ear tube to the right. No otitis noted bilaterally. TMs normal without perforation. Hearing grossly intact. NOSE: External nose normal with no obvious nasal discharge, nares without redness, no rhinorrhea. THROAT: Mucous membranes moist, posterior pharynx clear. NECK: Neck supple, non-ten
[2022-11-05 18:23] VITALS: BP 221/82; PULSE 70; RESP 20; TEMP 36.3; O2SAT 100
== END 2022-11-05 18:40 | disposition home or self-care (01) ==
PROVIDERS: Emergency Provider Nurse Practitioner Family; PCP Internal Medicine Infectious Disease
DX: H92.01 Otalgia, right ear (principal); E11.9 Type 2 diabetes mellitus without complications; E78.00 Pure hypercholesterolemia, unspecified; I10 Essential (primary) hypertension; E03.9 Hypothyroidism, unspecified
CPT/HCPCS: 99211; G0463